=== PATIENT | female | born 1975 | race Hispanic/Latino ===

== ENCOUNTER → 2018-08-14 | Outpatient (CLI) | payer BC, MEDICARE | END | disposition home or self-care (01) | LOC: RAH 09:46 | PROVIDERS: ATTEND Family Medicine | DX: M79.671 Pain in right foot (principal) | CPT/HCPCS: 73630 ==

== ENCOUNTER 2022-12-14 08:21 | Emergency (ER) | payer MEDICARE ==
[~2022-12-14] VITALS: Ht 162.6 cm; Wt 74.8 kg
[2022-12-14] MEDS ORDERED: ORPHENADRINE CITRATE 30 MG/ML ML IM ONE (09:30)
[2022-12-14] MEDS ORDERED: KETOROLAC 60 MG VIAL (30MG/ML) IM ONE (09:30)
[2022-12-14] MEDS ORDERED: CYCL-309 PO (09:34)
[2022-12-14] MEDS ORDERED: IBUP-2070 PO (09:34)
[2022-12-14 10:35] VITALS: BP 119/72
== END 2022-12-14 10:46 | disposition home or self-care (01) ==
LOC: EDH 08:21
DX: G89.4 Chronic pain syndrome (principal); M25.511 Pain in right shoulder; M79.7 Fibromyalgia; I10 Essential (primary) hypertension; F41.9 Anxiety disorder, unspecified; Z90.49 Acquired absence of other specified parts of digestive tract; Z98.890 Other specified postprocedural states
CPT/HCPCS: 99284; 96372 ×2; J1885; J2360